=== PATIENT | female | born 1990 | race Caucasian/White ===

== ENCOUNTER → 2020-12-12 07:50 | Outpatient (CLI) | payer MEDICAID, SELFPAY ==
--- NOTE | 2020-12-12 07:53 | MR_ITS ---
PROCEDURE: MR CERVICAL SPINE WO CON CLINICAL INDICATION: CERVICAL RADICULOPATHY COMPARISON: No exams were available for comparison TECHNIQUE: Standard multiplanar multiecho sequences are performed without contrast. 3-D MIP and myelographic images are also rendered and reviewed FINDINGS: Mild reversal of the usual cervical lordosis. No acute compression fractures of the cervical spine. Craniovertebral junction is normal. Posterior elements appear intact. No abnormal signal in the cervical spinal cord. IMPRESSION: C2-3: Within normal limits. C3-4: Small left paracentral posterior osteophytic ridge/disc bulge with slight compression on the left anterolateral surface of the cord. No spinal canal stenosis. Mild left neural foraminal narrowing. C4-5: Moderate 6 millimeter central posterior disc herniation with moderate compression on the ventral surface of the cord and moderate to severe spinal canal stenosis, with narrowing of the AP diameter of the canal to about 5 millimeters. Mild left neural foraminal narrowing. C5-6: Mild diffuse posterior osteophytic ridge/disc bulge moderately indenting ventral thecal sac without contacting the cord. No spinal canal stenosis. Mild bilateral neural foraminal narrowing. C6-7: Minimal diffuse posterior osteophytic ridge/disc bulge mildly indenting ventral thecal sac without contacting the cord. No spinal canal stenosis. Patent neural foramina. C7-T1: Minimal central posterior disc protrusion mildly indenting ventral thecal sac without contacting the cord. No spinal canal stenosis. Patent neural foramina. Dictated by: Reece Bucio 12/12/2020 10:00 Reece Bucio in [facility] 12/12/2020 10:00
== END ==
PROVIDERS: PCP Nurse Practitioner; Visit Provider Nurse Practitioner
DX: M54.12 Radiculopathy, cervical region (principal)
CPT/HCPCS: 72141; 76376